=== PATIENT | female | born 1960 | race African-American/Black ===

== ENCOUNTER 2018-11-25 20:02 | Emergency (ER) | payer MEDICAID ==
[~2018-11-25] VITALS: Ht 172.7 cm; Wt 100.0 kg
[2018-11-25 20:12] VITALS: BP 141/89
== END 2018-11-25 23:45 | disposition left against medical advice (07) ==
LOC: ER 20:02
DX: Z53.21 Procedure and treatment not carried out due to patient leaving prior to being seen by health care provider (principal)

== ENCOUNTER 2022-06-30 19:05 | Emergency (ER) | payer MEDICAID ==
[~2022-06-30] VITALS: Ht 167.6 cm; Wt 111.0 kg
[2022-06-30 19:08] VITALS: BP 198/137
[2022-06-30] MEDS ORDERED: IBUPROFEN 600MG TABLET PO STA (19:22)
[2022-06-30] MEDS ORDERED: AMLODIPINE 10MG TABLET PO ONE (19:30)
== END 2022-06-30 20:11 | disposition left against medical advice (07) ==
LOC: ER 19:05
DX: I16.0 Hypertensive urgency (principal); I10 Essential (primary) hypertension; Z88.5 Allergy status to narcotic agent; Z88.8 Allergy status to other drugs, medicaments and biological substances
CPT/HCPCS: 99281